=== PATIENT | male | born 1990 | race Caucasian/White ===

== ENCOUNTER 2018-07-04 06:21 | Emergency (ER) | payer SELFPAY ==
[~2018-07-04] VITALS: Ht 175.3 cm; Wt 82.0 kg
[2018-07-04] MEDS ORDERED: SODIUM CHLORIDE 0.9% 1,000 ML IV ONE (07:45)
[2018-07-04] MEDS ORDERED: LORAZEPAM 1MG TABLET PO ONE (07:45)
[2018-07-04 08:28] LABS: BASOPHILS % 1.3 % (0.0-2.0); EOSINOPHILS % 2.5 % (0.0-5.0); HEMATOCRIT. 42.8 % (42.0-52.0); MEAN CORPUSCULAR HEMOGLOBIN 31.6 pg (28.0-32.0); MEAN CORPUSCULAR VOLUME 90.2 fL (80.0-94.0); MEAN PLATELET VOLUME 8.2 fl (7.4-10.4); MONOCYTES % 9.1 % (2.0-8.0); NEUTROPHILS % 58.1 % (40.0-76.0); PLATELET 253 x1000/uL (130-400); RED BLOOD CELL COUNT 4.74 mill/uL (4.7-6.1); RED CELL DISTRIBUTION WIDTH 13.4 % (11.6-14.6)
[2018-07-04 08:39] LABS: CHLORIDE 105 mEq/L (98-107)
[2018-07-04 12:01] VITALS: BP 132/85
== END 2018-07-04 12:05 | disposition home or self-care (01) ==
LOC: ER 06:21
DX: R00.2 Palpitations (principal); F10.20 Alcohol dependence, uncomplicated; R07.9 Chest pain, unspecified; F12.10 Cannabis abuse, uncomplicated; R06.02 Shortness of breath; R11.0 Nausea; Y90.9 Presence of alcohol in blood, level not specified
CPT/HCPCS: 36415; 71045; 80053; 84484; 85025; 93005; 99285; J7030